=== PATIENT | male | born 1970 | race Caucasian/White ===

== ENCOUNTER 2019-06-09 19:49 | Emergency (ER) | payer BC ==
[2019-06-09] MEDS ORDERED: Sodium Chloride 0.9% 10 ML Syringe FLUSH PRN (20:05)
[2019-06-09] MEDS ORDERED: Ondansetron 4 MG/2 ML SDV IV ONE (20:12)
[2019-06-09] MEDS ORDERED: Lactated Ringers 1,000 ML IV ONE (20:12)
[2019-06-09] MEDS ORDERED: diphenhydrAMINE 50 MG/ML SDV IVPUSH ONE (20:12)
--- NOTE | 2019-06-09 20:22 | EDM.PDOC ---
ED HPI GENERAL MEDICAL PROBLEM - General Chief Complaint: Chemical Exposure Stated Complaint: POSSIBLE CO2 POISION Time Seen by Provider: 06/09/19 20:10 Source of Information: Reports: Patient History Limitations: Reports: No Limitations - History of Present Illness INITIAL COMMENTS - FREE TEXT/NARRATIVE: patient comes emergency department today with complaints of a headache and questionable carbon monoxide exposure or poisoning. This afternoon the patient was working inside enclosed building with a Bobcat that was running for 2-3 hours.They decided to stop working because he developed lightheadedness and near syncope. He went home had a headache nausea as well as some shortness of breath. Upon arrival the patient was placed on nonrebreather by the nursing staff with a resolved shortness of breath. He denies any chest pain weakness and he complains of a headache and lightheadedness. No palpitations. No weakness. No fever no chills. Does complain of some nausea without vomiting. No abdominal pain. Headache Pain Score (Numeric/FACES): 10 - Related Data Allergies Allergy/AdvReac Type Severity Reaction Status Date / Time escitalopram [From Lexapro] Allergy Rash Verified 06/09/19 20:06 Home Meds: Home Meds Calcium Carbonate/Vitamin D3 [Calcium 500 + Vit D Caplet] 1 tab PO DAILY [History] amLODIPine [Norvasc] 5 mg PO DAILY 06/09/19 [History] Past Medical History Cardiovascular History: Reports: Hypertension - Infectious Disease History Infectious Disease History: Reports: Chicken Pox - Past Surgical History GI Surgical History: Reports: Cholecystectomy Social & Family History - Family History Family Medical History: Noncontributory - Tobacco Use Smoking Status *Q: Never Smoker Second Hand Smoke Exposure: No - Caffeine Use Caffeine Use: Reports: Soda - Recreational Drug Use Recreational Drug Use: No ED ROS GENERAL - Review of Systems Review Of Systems: Comprehensive ROS is negative, except as noted in HPI. ED EXAM, BURN/SMOKE INHALATION - Physical Exam Exam: See Below Exam Limited By: No Limitations General Appearance: Alert, WD/WN, No Apparent Distress Eye Exam: Bilateral Eye: Normal Inspection, PERRL Ears (Abbreviated): Normal External Exam, Normal Canal, Normal TMs Mouth/Throat: No Symptoms Reported Head: Atraumatic, Normocephalic Neck: Normal, Supple Respiratory: No Respiratory Distress, Lungs Clear, Normal Breath Sounds, No Accessory Muscle Use Cardiovascular: Normal Peripheral Pulses, Regular Rate, Rhythm Peripheral Pulses: 2+: Radial (L), Radial (R), Posterior Tibial (L), Posterior Tibial (R), Dorsalis Pedis (L), Dorsalis Pedis (R) GI/Abdominal: Normal Bowel Sounds, Soft, Non-Tender, No Organomegaly Back Exam: Normal Inspection, Full Range of Motion Extremities: Normal Inspection, Normal Range of Motion, Non-Tender, Normal Capillary Refill Neurological: Alert, Oriented, CN II-XII Intact, Normal Cognition, No Motor/ Sensory Deficits Psychiatric: Normal Affect, Normal Mood Skin Exam: Warm, Dry, Intact, Normal Color, No Rash Lymphatic: No Adenopathy Course - Vital Signs Last Recorded V/S: Last Vital Signs Temp 36.6 C 06/09/19 20:07 Pulse 73 06/09/19 20:07 Resp 22 H 06/09/19 20:07 BP 148/79 H 06/09/19 20:07 Pulse Ox 100 06/09/19 20:11 - Orders/Labs/Meds Orders: Active Orders 24 hr Category Date Time Status EKG 12 Lead [EKG Documentation Completion] [RC] URGENT Care 06/09/19 20:05 Active Peripheral IV Care [RC] . DIRECTED Care 06/09/19 20:06 Active Peripheral IV Insertion Adult [OM.PC] Stat Oth 06/09/19 20:05 Ordered Labs: Laboratory Tests 06/09/19 06/09/19 06/09/19 Range/Units 20:08 20:08 20:31 WBC 9.3 (5.0-10.0) 10^3/uL RBC 5.25 (4.6-6.2) 10^6/uL Hgb 14.9 (14.0-18.0) g/dL Hct 42.5 (40.0-54.0) % MCV 81.0 (80-100) fL MCH 28.4 (27.0-34.0) pg MCHC 35.1 H (33.0-35.0) g/dL Plt Count 229 (150-450) 10^3/uL Neut % (Auto) 65.1 (42.2-75.2) % Lymph % (Auto) 22.6 (20.5-50.1) % [place] % (Auto) 9.5 H (2-8) % Eos % (Auto) 2.3 (1.0-3.0) % Baso % (Auto) 0.5 (0.0-1.0) % ABG pH 7.46 H (7.35-7.45) ABG pCO2 34 L (35-45) mmHg ABG pO2 296 H (70-100) mmHg ABG HCO3 24.2 (22-26) mmol/L ABG O2 Saturation 100 (95-100) % ABG Base Excess 1 ((-2)-(+3)) mmol/L ABG Carboxyhemoglobin 9.7 (0-10) % Daniel Test Performed O2 Delivery Device Non rebr mask Sodium 134 L (135-145) mmol/L Potassium 4.1 (3.6-5.0) mmol/L Chloride 103 (101-111) mmol/L Carbon Dioxide 22.0 (21.0-31.0) mmol/L Anion Gap 13.1 BUN 18 (7-18) mg/dL Creatinine 0.9 (0.6-1.3) mg/dL Est Cr Clr Drug Dosing 111.37 mL/min Estimated GFR (MDRD) > 60 BUN/Creatinine Ratio 20.00 Glucose 91 (74-105) mg/dL Calcium 8.9 (8.4-10.2) mg/dl Total Bilirubin 1.0 (0.2-1.0) mg/dL AST 25 (10-42) IU/L ALT 24 (10-60) IU/L Alkaline Phosphatase 72 (42-121) IU/L Troponin I < 0.02 (0.00-0.02) ng/ml Total Protein 7.8 (6.7-8.2) g/dl Albumin 4.2 (3.2-5.5) g/dl Globulin 3.6 Albumin/Globulin Ratio 1.17 Meds: Medications Discontinued Medications Generic Name Dose Route Start Last Admin Trade Name Freq PRN Reason Stop Dose Admin Diphenhydramine HCl 25 mg 06/09/19 20:12 06/09/19 20:22 Benadryl IVPUSH 06/09/19 20:13 25 mg ONETIME ONE Administration Lactated Ringer's 1,000 mls @ 1,000 mls/hr 06/09/19 20:12 06/09/19 20:21 Ringers, Lactated IV 06/09/19 21:11 1,000 mls/hr .BOLUS ONE Administration Ketorolac Tromethamine 30 mg 06/09/19 20:46 06/09/19 20:53 Toradol IVPUSH 06/09/19 20:47 Not Given ONETIME ONE Ondansetron HCl 4 mg 06/09/19 20:12 06/09/19 20:21 Zofran IV 06/09/19 20:13 4 mg ONETIME ONE Administration Sodium Chloride 10 ml 06/09/19 20:05 06/09/19 20:22 Saline Flush FLUSH 10 ml ASDIRECTED PRN Administration Keep Vein Open - Re-Assessments/Exams Free Text/Narrative Re-Assessment/Exam: 06/09/19 23:51 the patient felt much better after the oxygen therapy. His headache had completely resolved as well as his lightheadedness and shortness of breath. His carboxy hemoglobin is 9.7 which is under the current monoxide poisoning. He had about 2-1/2 hours of high flow oxygen therapy in the emergency department. His EKG and his troponin is negative. I explained to the patient that he is [place] this time to not have more serious carbon monoxide poisoning. He is comfortable with this plan and his questions answered. Departure - Departure Time of Disposition: 21:49 Disposition: Home, Self-Care 01 Clinical Impression: Carbon monoxide exposure - Discharge Information Forms: ED Department Discharge Additional Instructions: Increase fluids over the next few days. Tylenol as needed for headache or pain. Make sure at work you are aware of the risk of carbon monoxide and make sure well ventilated areas. Return to the ED if new or worsening symptoms. Follow up with PCP in the next 4-6 days if not improving sooner if worse. Sepsis Event Note - Evaluation Sepsis Screening Result: No Definite Risk - Focused Exam Vital Signs: Vital Signs Temp Pulse Resp BP Pulse Ox 06/09/19 20:11 100 06/09/19 20:07 36.6 C 73 22 H 148/79 H 97 Date Exam was Performed: 06/09/19 Time Exam was Performed: 23:50 - My Orders Last 24 Hours: My Active Orders 06/09/19 20:05 EKG 12 Lead [EKG Documentation Completion] [RC] URGENT Peripheral IV Insertion Adult [OM.PC] Stat 06/09/19 20:06 Peripheral IV Care [RC] . DIRECTED - Assessment/Plan Last 24 Hours: My Active Orders 06/09/19 20:05 EKG 12 Lead [EKG Documentation Completion] [RC] URGENT Peripheral IV Insertion Adult [OM.PC] Stat 06/09/19 20:06 Peripheral IV Care [RC] . DIRECTED Assessment:: Carbon monoxide exposure. Plan: Increase fluids over the next few days. Tylenol as needed for headache or pain. Make sure at work you are aware of the risk of carbon monoxide and make sure well ventilated areas. Return to the ED if new or worsening symptoms. Follow up with PCP in the next 4-6 days if not improving sooner if worse.
[2019-06-09 20:36] LABS: BASE EXCESS ARTERIAL 1 mmol/L ((-2)-(+3)); BICARBONATE,ARTERIAL 24.2 mmol/L (22-26); O2 DELIVERY DEVICE NON REBR MASK; O2 SATURATION ARTERIAL 100 % (95-100); PCO2 ARTERIAL 34 mmHg (35-45); PO2 ARTERIAL 296 mmHg (70-100)
[2019-06-09 20:37] LABS: ALLEN TEST PERFORMED
[2019-06-09] MEDS ORDERED: Ketorolac 30 MG/ML SDV IVPUSH ONE (20:46)
[2019-06-09 20:51] LABS: ANION GAP 13.1; CHLORIDE,CL 103 mmol/L (101-111); SODIUM,NA 134 mmol/L (135-145)
== END 2019-06-09 22:06 | disposition home or self-care (01) ==
LOC: DL.ED 19:49
DX: T58.91XA Toxic effect of carbon monoxide from unspecified source, accidental (unintentional), initial encounter (principal); I10 Essential (primary) hypertension; Z88.8 Allergy status to other drugs, medicaments and biological substances; Z79.899 Other long term (current) drug therapy
CPT/HCPCS: 36415; 36600; 80053; 82375; 82803; 84484; 85025; 93005; 96361; 96374; 96375; 99284; J1200; J2405; J7120

== ENCOUNTER 2021-03-17 04:46 | Emergency (ER) | payer BC ==
--- NOTE | 2021-03-17 05:44 | EDM.PDOC ---
ED HPI GENERAL MEDICAL PROBLEM - General Chief Complaint: ENT Problem Stated Complaint: SINUS NOW IN CHEST Time Seen by Provider: 03/17/21 05:30 Source of Information: Reports: Patient - History of Present Illness INITIAL COMMENTS - FREE TEXT/NARRATIVE: Justin is a 50 y/o male who presents to the ED via personal vehicle with complaints of sinus congestion, cough, and sore throat. The patient reports his symptoms began four days ago and have mildly worsened in that time. He notes he is unable to take a deep cough due to chest tightness with deep inspiration and sore throat. He denies fever, shaking chills, chest pain/pressure, palpitations, shortness of breath, wheezing, stridor, dyspepsia, abdominal pain, nausea, or vomiting. He has been taking [place] Cold as well as an OTC decongestant with mild reduction in symptoms. The patient reports a history of pneumonia approximately five years ago, which causes him concerns for his current symptoms. He attests to a COVID-19 infection in July of 2020, he is not vaccinated for COVID-19 or influenza. The patient denies tobacco, alcohol, or recreational drug use. - Related Data Allergies Allergy/AdvReac Type Severity Reaction Status Date / Time escitalopram [From Lexapro] Allergy Rash Verified 03/17/21 05:14 Home Meds: Home Meds Calcium Carbonate/Vitamin D3 [Calcium 500 + Vit D Caplet] 1 tab PO DAILY 06/09/19 [History] amLODIPine [Norvasc] 5 mg PO DAILY 06/09/19 [History] Acetaminophen [Tylenol Extra Strength] 500 mg PO ASDIRECTED PRN 07/27/20 [Histo ry] Past Medical History Cardiovascular History: Reports: Hypertension Gastrointestinal History: Reports: Other (See Below) Other Gastrointestinal History: Gallbladder removed. Musculoskeletal History: Reports: Other (See Below) Other Musculoskeletal History: pt states he needs his right hip replaced and is meeting with a surgion bunny. - Infectious Disease History Infectious Disease History: Reports: Chicken Pox - Past Surgical History GI Surgical History: Reports: Cholecystectomy Musculoskeletal Surgical History: Reports: Hip Replacement Other Musculoskeletal Surgeries/Procedures:: right hip September 2020 Social & Family History - Family History Family Medical History: No Pertinent Family History - Tobacco Use Tobacco Use Status *Q: Never Tobacco User Second Hand Smoke Exposure: No - Caffeine Use Caffeine Use: Reports: Soda ED ROS GENERAL - Review of Systems Review Of Systems: Comprehensive ROS is negative, except as noted in HPI. ED EXAM, GENERAL - Physical Exam Exam: See Below Exam Limited By: No Limitations General Appearance: Alert, No Apparent Distress Eye Exam: Bilateral Eye: EOMI, Normal Inspection, Periorbital Changes (Mild edema to inferior orbits), PERRL (m) Ear Exam: Bilateral Ear: Auricle Normal, Canal Normal, TM Dull, Other (Serous fluid) Nose: Normal Inspection, Other (Pain to bilateral maxillary sinuses with palpation) Throat/Mouth: Normal Voice, No Airway Compromise, Inflammation (Erythema to posterior oropharynx) Head: Atraumatic, Normocephalic Neck: Normal Inspection. No: Lymphadenopathy (L), Lymphadenopathy (R) Respiratory/Chest: No Respiratory Distress, Lungs Clear, Normal Breath Sounds, No Accessory Muscle Use, Chest Non-Tender. No: Crackles, Rales, Rhonchi, Wheezing, Pleural Rub, Prolonged Expiration Cardiovascular: Normal Peripheral Pulses, Regular Rate, Rhythm, No Gallop, No Murmur, No Rub Peripheral Pulses: 2+: Radial (L), Radial (R) GI/Abdominal: Normal Bowel Sounds, Soft, Non-Tender, No Distention, No Abnormal Bruit, No Mass, Pelvis Stable (Male) Exam: Deferred Rectal (Males) Exam: Deferred Back Exam: Normal Inspection, Full Range of Motion Extremities: Normal Inspection, Normal Range of Motion, Normal Capillary Refill Neurological: Alert, Oriented, CN II-XII Intact, Normal Cognition, Normal Gait, No Motor/Sensory Deficits Psychiatric: Normal Affect, Normal Mood Skin Exam: Warm, Dry, Intact, Normal Color, No Rash. No: Cyanosis, Jaundice, Mottled, Pallor Lymphatic: No Adenopathy Course - Vital Signs Last Recorded V/S: Last Vital Signs Temp 98.1 F 03/17/21 05:06 Pulse 76 03/17/21 05:06 Resp 20 03/17/21 05:06 BP 166/91 H 03/17/21 05:06 Pulse Ox 96 03/17/21 05:06 - Orders/Labs/Meds Orders: Active Orders 24 hr Category Date Time Status Benzonatate [Tessalon Perles] Med 03/17/21 06:08 Once 100 mg PO ONETIME ONE Medication Orders Benzonatate (Benzonatate 100 Mg Cap) 100 mg PO ONETIME ONE Stop: 03/17/21 06:09 Labs: Laboratory Tests 03/17/21 Range/Units 05:10 SARS-CoV-2 RNA (SHIN) Negative (NEGATIVE) Meds: Medications Generic Name Dose Route Start Last Admin Trade Name Maria A PRN Reason Stop Dose Admin Benzonatate 100 mg 03/17/21 06:08 Benzonatate 100 Mg Cap PO 03/17/21 06:09 ONETIME ONE - Re-Assessments/Exams Free Text/Narrative Re-Assessment/Exam: 03/17/21 COVID negative. Findings of examination and lab work reviewed with patient. Given HPI and benign physical examination, will refrain from CXR at this time. Will treat viral URI with supportive cares; cough will treat with Tessalon Perles Patient instructed to follow up with primary care provider regarding todays visit. Red flag signs and symptoms which would warrant immediate reevaluation reviewed. Patient verbalized understanding and agreement with the plan of care. Departure - Departure Time of Disposition: 05:59 Disposition: Home, Self-Care 01 Condition: Good Clinical Impression: Viral upper respiratory infection - Discharge Information *PRESCRIPTION DRUG MONITORING PROGRAM REVIEWED*: Not Applicable *COPY OF PRESCRIPTION DRUG MONITORING REPORT IN PATIENT MACI: Not Applicable Instructions: Viral Respiratory Infection Forms: ED Department Discharge Additional Instructions: Rx: Tessalon Perles 100mg (#15) 1.) Continue with your [id number] nasal decongestant. 2.) Warm salt water gargles for throat pain. You may also try an [id number] throat spray, such as Chloraseptic spray, for sore throat. 3.) Increase your water intake as it will help to thin mucous. 4.) Use a humidifier in your home to keep the air moist. 5.) Follow up with your primary care provider should symptoms persist past 21 days, or worsen. Return to the emergency department with any worsening symptoms over the weekend. Sepsis Event Note (ED) - Evaluation Sepsis Screening Result: No Definite Risk - Focused Exam Vital Signs: Vital Signs Temp Pulse Resp BP Pulse Ox 03/17/21 05:06 98.1 F 76 20 166/91 H 96 - My Orders Last 24 Hours: My Active Orders 03/17/21 06:08 Benzonatate [Tessalon Perles] 100 mg PO ONETIME ONE - Assessment/Plan Last 24 Hours: My Active Orders 03/17/21 06:08 Benzonatate [Tessalon Perles] 100 mg PO ONETIME ONE
[2021-03-17] MEDS ORDERED: Benzonatate 100 MG Cap PO ONE (06:08)
== END 2021-03-17 06:21 | disposition home or self-care (01) ==
LOC: DL.ED 04:46
DX: J06.9 Acute upper respiratory infection, unspecified (principal); I10 Essential (primary) hypertension; Z88.8 Allergy status to other drugs, medicaments and biological substances; Z79.899 Other long term (current) drug therapy; Z20.822 Contact with and (suspected) exposure to COVID-19
CPT/HCPCS: 87635; 99283; A9270; U0002